=== PATIENT | male | born 1995 | race Caucasian/White ===

== ENCOUNTER 2021-04-07 19:07 | Emergency (ER) | payer BC, SELFPAY ==
--- NOTE | 2021-04-07 19:12 | ED.ALLEREA ---
HPI - Allergic Reaction General Chief complaint: Allergic Reaction Stated complaint: allergic to coconut, just ate some Source: patient and RN notes reviewed Mode of arrival: ambulatory Limitations: no limitations History of Present Illness complaint: allergic reaction Onset (ago): minute(s) (10) Exposure: food Known history of allergy to: coconut Symptoms: itching (throat) and hoarseness (mild) Severity: mild Related Data Home Medications Medication Instructions Recorded Confirmed No Home Medications 04/07/21 04/07/21 Allergies Allergy/AdvReac Type Severity Reaction Status Date / Time coconut Allergy Severe THROAT Verified 05/04/16 06:43 SWELLS/HIVES NUTS NOT PEANUTS, ALMONDS, Allergy Unknown ITCHING Uncoded 01/26/16 14:09 PINEDA Review of Systems Review of Systems: All systems reviewed & are unremarkable except as noted in HPI and below PMFSH Surgical History Surgical History (Updated 04/07/21 @ 19:46 by Mitchell Catherine MD) History of myringotomy History of tonsillectomy and adenoidectomy Family History Family History Other Diabetes mellitus Family history of cardiovascular disease Exam Const: General: healthy appearing, no acute distress and alert Nutritional Appearance: well nourished Orientation/consciousness: patient oriented x3 HENMT: Head: normal to inspection Face and sinus: normal facial exam Mouth: Yes Normal oral and palatal mucosa present and Yes moist mucous membranes Throat: posterior oropharynx abnormal erythema (mild) Eyes: Conjunctivae: conjunctivae normal Pupils: Equal, round and reactive pupils present EOM: EOMs intact bilaterally Neck: Neck: normal visual inspection and no lymphadenopathy Resp: Effort & Inspection: normal respiratory effort Auscultation: clear to auscultation bilaterally Cardio: Rate: regular rate Rhythm: regular rhythm GI: GI Palp: Yes Soft to palpation and No Tenderness to palpation present (GI) Auscultation: normal bowel sounds Back/Spine/Pelvis: Cervical Spine: cervical ROM normal Thoracic/Lumbar Spine: thoraco-lumbar ROM normal Skin: General skin exam: normal color Rashes: no rashes Neuro: General: patient oriented x3, moves all extremities, no meningeal signs and no focal motor deficits Speech: normal speech Gait exam (Neuro): Normal gait present Extrem: General: normal to inspection and no clubbing, cyanosis or edema Psych: Appearance: grossly normal and well kempt Affect: normal affect Attitude: cooperative Thought content: Yes Normal thought content present Course Vital Signs Vital signs: Vital Signs Temperature 36.7 C 04/07/21 19:25 Pulse Rate 97 04/07/21 19:25 Respiratory Rate 18 04/07/21 19:25 Blood Pressure 161/101 H 04/07/21 19:25 Pulse Oximetry 100 04/07/21 19:25 Temperature 36.7 C 04/07/21 19:25 Pulse Rate 89 04/07/21 19:56 Respiratory Rate 16 04/07/21 19:56 Blood Pressure 163/97 H 04/07/21 19:56 Pulse Oximetry 98 04/07/21 19:56 Discharge Plan Discharge Clinical Impression: Allergic reaction Qualifiers: Encounter type: initial encounter Qualified Code(s): T78.40XA - Allergy, unspecified, initial encounter Patient Disposition: Home, Self-Care Condition: Improved Instructions: Food Allergy (ED) Additional Instructions: can use Zyrtec [id number] 10 mg twice daily as needed. Can also use Zantac or Pepcid [id number] as needed. Prescriptions: No Action No Home Medications RF: 0 Follow-up/Referrals: Keith Downey MD [Primary Care Provider] - Time of Disposition: 19:47
[2021-04-07 19:25] VITALS: BP 161/101; PULSE 97; RESP 18; TEMP 36.7; O2SAT 100
[2021-04-07] MEDS: diphenhydrAMINE HCl INJ 50 MG/ML VIAL IM (19:41)
[2021-04-07] MEDS: methylPREDNISolone SOD SUCC 125 MG VIAL IM (19:41)
--- NOTE | 2021-04-07 19:50 | PC.NURSE ---
Patient tolerated IM injections and does not have any questions or concerns at this time. call light within reach and patient alert and oriented x4. RN educated patient on observing him for approximately 15 minutes after administering medications to watch or reaction. patient verbalized understanding at this time.
[2021-04-07 19:56] VITALS: BP 163/97; PULSE 89; RESP 16; O2SAT 98
== END 2021-04-07 20:04 | disposition home or self-care (01) ==
PROVIDERS: Emergency Provider Emergency Medicine; PCP Family Medicine
DX: T78.40XA Allergy, unspecified, initial encounter (principal)
CPT/HCPCS: 96372; 99283; 99284; J1200; J2930

== ENCOUNTER 2022-11-05 01:36 | Day surgery (SDC) | payer BC, SELFPAY ==
[2022-10-24 14:08] VITALS: BMI 29.9
[2022-11-05 08:38] VITALS: BP 144/87; PULSE 84; RESP 16; TEMP 36.3; O2SAT 100
[2022-11-05] MEDS: LACTATED RINGERS 1,000 ML 150 ML IV CONT (08:47)
--- NOTE | 2022-11-05 09:34 | PM.HPGS ---
History of Present Illness History of Present Illness Consent: Risks, benefits, and alternatives have been discussed and questions answered. Patient agrees to proceed with procedure. Chief complaint: eosinophilic esophagitis, Dysphagia Narrative: Amos Rachel is a 27 year old male Presents for EGD. 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 At that time and esophageal erosions. Was placed on omeprazole. Patient however has not continued this medication. At that time EGD revealed elevated eosinophil count in the histology suggesting underlying eosinophilic esophagitis. Patient ultimately discontinued omeprazole. Over the last several years has had intermittent dysphagia. Complains of occasional regurgitation and heartburn. This has become more persistent recently. Three months ago he restarted omeprazole 40mg p.o. daily. He has had no further dysphagia. He does complain of some regurgitation however. Patient referred for follow-up EGD at this time. Family history noncontributory. Review of Systems Review of Systems: Review of systems noncontributory. [facility] Past Medical History Medical History (Updated 11/05/22 @ 09:36 by Mitchell Graff MD) Eosinophilic esophagitis GERD with esophagitis Hypertension Hypertension Obesity (BMI 30.0-34.9) Surgical History Surgical History History of myringotomy History of tonsillectomy and adenoidectomy Family History Family History Other Diabetes mellitus Family history of cardiovascular disease Social History Social History Smoking status: Never smoker Alcohol intake: current Drinks per week: 3 Alcohol use details: social Substance use: never Substance use type: does not use Living arrangements: with family Spiritual care concerns: No Meds Home Medications and Allergies Home Medications Medication Instructions Recorded Confirmed Type lisinopril 20 1 tablet PO DAILY 09/05/22 10/24/22 History mg-hydrochlorothiazide 12.5 mg tablet omeprazole 40 mg capsule,delayed 40 mg PO DAILY 09/05/22 10/24/22 History release Allergies Allergy/AdvReac Type Severity Reaction Status Date / Time coconut Allergy Severe THROAT Verified 11/05/22 08:37 SWELLS/HIVES hazelnut Allergy Swelling Verified 11/05/22 08:37 of Lip/Tongue/Throat walnut AdvReac Swelling Verified 11/05/22 08:37 of Lip/Tongue/Throat Vital Signs Vital Signs - 24 hr 11/05/22 08:38 Temperature 97.3 F L Pulse Rate 84 Respiratory Rate 16 Blood Pressure 144/87 H Pulse Oximetry 100 Oxygen Delivery Room Air Exam Narrative: Physical exam reveals patient to be alert. Vital signs stable. HEENT exam is unremarkable. Patient is anicteric. Lungs are clear to auscultation and percussion. Heart is without murmur or extra sounds. Abdomen bowel sounds present soft nontender with no organomegaly. Assessment and Plan Assessment and plan (1) GERD with esophagitis: Code(s): K21.00 - Gastro-esophageal reflux disease with esophagitis, without bleeding Status: Acute Assessment and Plan: Patient appears to have underlying GE reflux disease manifested by esophageal erosions on previous EGD. Complains recurrence symptoms at this time having discontinued the omeprazole. Plan for long-term omeprazole 40mg p.o. daily. Follow-up EGD to assess status of GE reflux is advised. Patient also has possibility of concomitant the eosinophilic esophagitis this will be evaluated at the time of procedure as well. (2) Eosinophilic esophagitis: Code(s): K20.0 - Eosinophilic esophagitis Status: Acute Assessment and Plan: Patient had elevated eosinophil
--- NOTE | 2022-11-05 09:59 | P.PNAN_ITS ---
Anes - Initial Pre Proc Eval Procedure: Operation Date: 11/05/22 10:00 Proposed Procedures p Esophagogastroduodenoscopy - Mitchell Graff MD Date/Time: 11/05/22 09:59 Surgeon: Mitchell Graff MD Pre Op Diagnosis: eosinophilic esophagitis, Dysphagia Patient Data Age: 27 Gender: M Height: 1.85 m Weight: 106.5 kg Last Vital Signs Temp 97.3 F L 11/05/22 08:38 Pulse 84 11/05/22 08:38 Resp 16 11/05/22 08:38 BP 144/87 H 11/05/22 08:38 Pulse Ox 100 11/05/22 08:38 O2 Del Method Room Air 11/05/22 08:38 Allergies Allergy/AdvReac Type Severity Reaction Status Date / Time coconut Allergy Severe THROAT Verified 11/05/22 08:37 SWELLS/HIVES hazelnut Allergy Swelling Verified 11/05/22 08:37 of Lip/Tongue/Throat walnut AdvReac Swelling Verified 11/05/22 08:37 of Lip/Tongue/Throat Home Medications Medication Instructions Recorded Confirmed Type lisinopril 20 1 tablet PO DAILY 09/05/22 10/24/22 History mg-hydrochlorothiazide 12.5 mg tablet omeprazole 40 mg capsule,delayed 40 mg PO DAILY 09/05/22 10/24/22 History release Patient hx anesthesia problems: none Family hx anesthesia problems: none Results Review: All pre-operative results and documents have been reviewed as part of the pre- operative evaluation. [facility] Past Medical History Medical History (Updated 11/05/22 @ 09:36 by Mitchell Graff MD) Eosinophilic esophagitis GERD with esophagitis Hypertension Hypertension Obesity (BMI 30.0-34.9) Surgical History Surgical History History of myringotomy History of tonsillectomy and adenoidectomy Family History Family History Other Diabetes mellitus Family history of cardiovascular disease Social History Social History Smoking status: Never smoker Alcohol intake: current Drinks per week: 3 Alcohol use details: social Substance use: never Substance use type: does not use Living arrangements: with family Spiritual care concerns: No Anes - Eval Final PreProcedure Day of Procedure 11/05/22 09:59 Patient weight: normal and obese Heart: regular rate and rhythm Lungs: clear to auscultation Airway: Mallampati scale class II Neurological: alert and oriented Last oral intake: >/= 8 hours ASA classification: II Emergent: no Anesthetic plan: proceed Anesthesia type and monitoring: general GIVS and standard monitoring Results Review: All pre-operative results and documents have been reviewed as part of the pre-operative evaluation. Informed Consent: The patient's anesthetic plan and its attendant risks and benefits were discussed with the patient/family/POA. Questions were solicited and answers provided to the satisfaction of the patient/family/POA.
[2022-11-05 10:26] VITALS: BP 108/62; PULSE 53; RESP 15; O2SAT 100
[2022-11-05 10:36] VITALS: BP 117/92; PULSE 87; RESP 13; O2SAT 100
[2022-11-05 10:46] VITALS: BP 114/73; PULSE 76; RESP 20; O2SAT 99
== END 2022-11-05 10:56 | disposition home or self-care (01) ==
PROVIDERS: PCP Family Medicine; Visit Provider Internal Medicine Gastroenterology
PROC: 0DJ08ZZ Inspection of Upper Intestinal Tract, Via Natural or Artificial Opening Endoscopic (ICD-10-PCS; CPT 43235; principal; 2022-11-05 10:00)
DX: K20.0 Eosinophilic esophagitis (principal); R13.10 Dysphagia, unspecified; I10 Essential (primary) hypertension; E66.9 Obesity, unspecified; Z68.31 Body mass index [BMI] 31.0-31.9, adult
CPT/HCPCS: 43239; 88305; 88312; J2704; J7120

== ENCOUNTER 2023-02-08 02:17 | Day surgery (SDC) | payer BC, SELFPAY ==
[2023-01-24 09:30] VITALS: BMI 30.4
[2023-02-08 07:48] VITALS: BP 139/82; PULSE 85; RESP 18; TEMP 36.4; O2SAT 100; BMI 31.4
[2023-02-08] MEDS: LACTATED RINGERS 1,000 ML 150 ML IV CONT (07:59)
--- NOTE | 2023-02-08 08:33 | PM.HPGS ---
History of Present Illness History of Present Illness Consent: Risks, benefits, and alternatives have been discussed and questions answered. Patient agrees to proceed with procedure. Chief complaint: Gastroesophageal reflux disease with oesophagitis Narrative: Amos Rachel is a 27 year old male Presents for EGD. Patient has a history of erosive esophagitis. Rather significant erosions and stricture ring identified in October of 2022. Patient has been maintained on omeprazole 40mg p.o. b.i.d.. He denies any heartburn. He does have some difficulty swallowing pills however. Patient returns today for follow-up endoscopy. Biopsies were indeterminate between acid reflux and possible eosinophilic esophagitis. Review of Systems Review of Systems: Review of systems noncontributory. [facility] Past Medical History Medical History (Updated 11/05/22 @ 09:36 by Mitchell Graff MD) Eosinophilic esophagitis GERD with esophagitis Hypertension Hypertension Obesity (BMI 30.0-34.9) Surgical History Surgical History History of myringotomy History of tonsillectomy and adenoidectomy Family History Family History Other Diabetes mellitus Family history of cardiovascular disease Social History Social History Smoking status: Never smoker Alcohol intake: current Drinks per week: 3 Alcohol use details: 7 drinks monthly Substance use: never Substance use type: does not use Living arrangements: with family Spiritual care concerns: No Meds Home Medications and Allergies Home Medications Medication Instructions Recorded Confirmed Type lisinopril 20 1 tablet PO DAILY 09/05/22 01/24/23 History mg-hydrochlorothiazide 12.5 mg tablet omeprazole 40 mg capsule,delayed 40 mg PO .BID #60 caps 11/05/22 01/24/23 Rx release Allergies Allergy/AdvReac Type Severity Reaction Status Date / Time coconut Allergy Severe THROAT Verified 01/24/23 09:31 SWELLS/HIVES hazelnut Allergy Swelling Verified 01/24/23 09:31 of Lip/Tongue/Throat walnut AdvReac Swelling Verified 01/24/23 09:31 of Lip/Tongue/Throat Vital Signs Vital Signs - 24 hr 02/08/23 07:48 Temperature 97.6 F Pulse Rate 85 Respiratory Rate 18 Blood Pressure 139/82 Pulse Oximetry 100 Oxygen Delivery Room Air Exam Narrative: Physical exam reveals patient to be alert. Vital signs stable. HEENT exam is unremarkable. Patient is anicteric. Lungs are clear to auscultation and percussion. Heart is without murmur or extra sounds. Abdomen bowel sounds are present soft nontender with no organomegaly. Assessment and Plan Assessment and plan (1) Dysphagia: Code(s): R13.10 - Dysphagia, unspecified Status: Acute Assessment and Plan: Patient with dysphagia suggesting recurrent esophageal stricturing. Plan for EGD for additional dilatation also to follow-up on previous esophagitis. (2) GERD with esophagitis: Code(s): K21.00 - Gastro-esophageal reflux disease with esophagitis, without bleeding Status: Acute Assessment and Plan: Patient with underlying erosive esophagitis. Differential includes both GE reflux as well as eosinophilic esophagitis. Follow-up EGD anticipated at this time. Patient has been maintained on omeprazole 40mg p.o. b.i.d.. Further recommendations may be given after endoscopy.
[2023-02-08] MEDS: BENZOCAINE (*SP) 60 ML SPRAY CAN (HURRICAINE) 1 SPRAY MUCOUS MEM (09:19)
[2023-02-08] MEDS: SIMETHICONE ORAL SUSPENSION 20 MG/0.3 ML 30 ML BOTTLE 0.6 ML IRRIGATION (09:24)
[2023-02-08 09:32] VITALS: BP 115/89; PULSE 88; RESP 17; O2SAT 96
[2023-02-08 09:42] VITALS: BP 134/87; PULSE 82; RESP 20; O2SAT 98
[2023-02-08 09:52] VITALS: BP 131/88; PULSE 75; RESP 16; O2SAT 99
== END 2023-02-08 09:59 | disposition home or self-care (01) ==
PROVIDERS: PCP Family Medicine; Visit Provider Internal Medicine Gastroenterology
PROC: 0DJ08ZZ Inspection of Upper Intestinal Tract, Via Natural or Artificial Opening Endoscopic (ICD-10-PCS; CPT 43235; principal; 2023-02-08 09:00)
DX: R13.10 Dysphagia, unspecified (principal); K21.9 Gastro-esophageal reflux disease without esophagitis; I10 Essential (primary) hypertension; E66.9 Obesity, unspecified; Z68.31 Body mass index [BMI] 31.0-31.9, adult
CPT/HCPCS: 43239; 43450; 88305; J2704; J7120

== ENCOUNTER 2023-05-03 03:02 | Day surgery (SDC) | payer BC, SELFPAY ==
[2023-04-17 14:04] VITALS: BMI 30.4
--- NOTE | 2023-05-01 11:28 | SUR.PREOP ---
Patient called regarding upcoming procedure. Reviewed preop instructions, appointment times, and procedure prep.
[2023-05-03 07:06] VITALS: BP 134/87; PULSE 98; RESP 18; TEMP 36.7; O2SAT 99; BMI 31.4
[2023-05-03] MEDS: LACTATED RINGERS 1,000 ML 150 ML IV CONT (07:19)
--- NOTE | 2023-05-03 07:23 | WPDANESEPPF ---
Anes - Initial Pre Proc Eval Procedure: Operation Date: 05/03/23 08:00 Proposed Procedures p Esophagogastroduodenoscopy - Mitchell Graff MD Date/Time: 05/03/23 07:23 Surgeon: Mitchell Graff MD Pre Op Diagnosis: Erosive Esophagitis Patient Data Age: 27 Gender: M Height: 1.85 m Weight: 108.2 kg Last Vital Signs Temp 36.7 C 05/03/23 07:06 Pulse 98 05/03/23 07:06 Resp 18 05/03/23 07:06 BP 134/87 05/03/23 07:06 Pulse Ox 99 05/03/23 07:06 O2 Del Method Room Air 05/03/23 07:06 Allergies Allergy/AdvReac Type Severity Reaction Status Date / Time coconut Allergy Severe THROAT Verified 05/03/23 07:04 SWELLS/HIVES hazelnut Allergy Swelling Verified 05/03/23 07:04 of Lip/Tongue/Throat walnut AdvReac Swelling Verified 05/03/23 07:04 of Lip/Tongue/Throat Home Medications Medication Instructions Recorded Confirmed Type lisinopril 20 1 tablet PO DAILY 09/05/22 04/17/23 History mg-hydrochlorothiazide 12.5 mg tablet omeprazole 40 mg capsule,delayed 40 mg PO DAILY 04/17/23 04/17/23 History release Patient hx anesthesia problems: none Family hx anesthesia problems: none Results Review: All pre-operative results and documents have been reviewed as part of the pre-operative evaluation. [facility] Past Medical History Medical History Eosinophilic esophagitis GERD with esophagitis Hypertension Hypertension Obesity (BMI 30.0-34.9) Surgical History Surgical History History of myringotomy History of tonsillectomy and adenoidectomy Family History Family History Other Diabetes mellitus Family history of cardiovascular disease Social History Social History Smoking status: Never smoker Alcohol intake: current Drinks per week: 3 Alcohol use details: 7 drinks monthly Substance use: never Substance use type: does not use Living arrangements: with family Spiritual care concerns: No Anes - Eval Final PreProcedure Day of Procedure 05/03/23 07:23 Patient weight: obese Heart: regular rate and rhythm Lungs: clear to auscultation Airway: Mallampati scale class II Neurological: alert and oriented Last oral intake: >/= 8 hours ASA classification: II Emergent: no Anesthetic plan: proceed Anesthesia type and monitoring: general GIVS and standard monitoring Results Review: All pre-operative results and documents have been reviewed as part of the pre-operative evaluation. Informed Consent: The patient's anesthetic plan and its attendant risks and benefits were discussed with the patient/family/POA. Questions were solicited and answers provided to the satisfaction of the patient/family/POA.
--- NOTE | 2023-05-03 07:24 | PM.HPGS ---
History of Present Illness History of Present Illness Consent: Risks, benefits, and alternatives have been discussed and questions answered. Patient agrees to proceed with procedure. Chief complaint: Erosive Esophagitis Narrative: Amos Rachel is a 27 year old male With a history of rather significant acid reflux. Patient previously found to have severe erosive esophagitis. This was noted to have signs of improvement dose of omeprazole was decreased to20mg p.o. daily. Patient reports that he intermittently will gag and feel regurgitation. He sometimes has difficulty swallowing the omeprazole pill. Otherwise eating meat such as chicken is passed without difficulty. Patient presents today for follow-up endoscopy. Review of Systems Review of Systems: review of systems noncontributory. [facility] Past Medical History Medical History Eosinophilic esophagitis GERD with esophagitis Hypertension Hypertension Obesity (BMI 30.0-34.9) Surgical History Surgical History History of myringotomy History of tonsillectomy and adenoidectomy Family History Family History Other Diabetes mellitus Family history of cardiovascular disease Social History Social History Smoking status: Never smoker Alcohol intake: current Drinks per week: 3 Alcohol use details: 7 drinks monthly Substance use: never Substance use type: does not use Living arrangements: with family Spiritual care concerns: No Meds Home Medications and Allergies Home Medications Medication Instructions Recorded Confirmed Type lisinopril 20 1 tablet PO DAILY 09/05/22 04/17/23 History mg-hydrochlorothiazide 12.5 mg tablet omeprazole 40 mg capsule,delayed 40 mg PO DAILY 04/17/23 04/17/23 History release Allergies Allergy/AdvReac Type Severity Reaction Status Date / Time coconut Allergy Severe THROAT Verified 05/03/23 07:04 SWELLS/HIVES hazelnut Allergy Swelling Verified 05/03/23 07:04 of Lip/Tongue/Throat walnut AdvReac Swelling Verified 05/03/23 07:04 of Lip/Tongue/Throat Vital Signs Vital Signs - 24 hr 05/03/23 07:06 Temperature 98.1 F Pulse Rate 98 Respiratory Rate 18 Blood Pressure 134/87 Pulse Oximetry 99 Oxygen Delivery Room Air Exam Narrative: Physical exam reveals patient to be alert. Vital signs stable. HEENT exam is unremarkable. Patient is anicteric. Lungs are clear to auscultation and percussion. Heart is without murmur or extra sounds. Abdomen bowel sounds are present soft nontender with no organomegaly. Assessment and Plan Assessment and plan (1) Dysphagia: Code(s): R13.10 - Dysphagia, unspecified Status: Acute Assessment and Plan: Patient with difficulty swallowing pills such as omeprazole. He does notice occasional regurgitation. Symptoms appear not as well controlled taking only 20mg of omeprazole. Follow-up EGD to be performed today. (2) GERD with esophagitis: Code(s): K21.00 - Gastro-esophageal reflux disease with esophagitis, without bleeding Status: Acute Assessment and Plan: Patient with significant acid reflux in the past. Erosive esophagitis appeared to be improving on taken a 40mg dose of omeprazole. Further med recommendations may be given on follow-up EGD today.
--- NOTE | 2023-05-03 08:30 | SUR.OPER ---
CNC SUPERVISOR used oral suction during procedure for excess secretions.
[2023-05-03 08:34] VITALS: BP 97/60; PULSE 89; RESP 20; O2SAT 96
[2023-05-03 08:44] VITALS: BP 97/63; PULSE 84; RESP 20; O2SAT 96
[2023-05-03 08:54] VITALS: BP 108/70; PULSE 90; RESP 24; O2SAT 99
== END 2023-05-03 09:06 | disposition home or self-care (01) ==
PROVIDERS: PCP Family Medicine; Visit Provider Internal Medicine Gastroenterology
PROC: 0DJ08ZZ Inspection of Upper Intestinal Tract, Via Natural or Artificial Opening Endoscopic (ICD-10-PCS; CPT 43235; principal; 2023-05-03 08:00)
DX: R13.10 Dysphagia, unspecified (principal); K21.00 Gastro-esophageal reflux disease with esophagitis, without bleeding; I10 Essential (primary) hypertension; E66.9 Obesity, unspecified; Z68.31 Body mass index [BMI] 31.0-31.9, adult
CPT/HCPCS: 43239; 43450; 88305; J2001; J2704; J7120

== ENCOUNTER 2023-05-31 13:26 | Outpatient (CLI) | payer BC, SELFPAY ==
[2023-05-31 13:55] LABS: Basophils Absolute Auto 0.06 K/mm3 (0.00-0.10); Basophils Percent Auto 0.5 % (0.0-1.0); Eosinophils Absolute Auto 0.28 K/mm3 (0.02-0.50); Eosinophils Percent Auto 2.5 % (1.0-6.0); Hematocrit 44.2 % (40.0-54.0); Hemoglobin 14.9 g/dL (14.0-18.0); Immature Granulocyte Absolute 0.05 K/mm3 (0.00-0.00); Immature Granulocyte Percent A 0.4 % (0.0-0.0); Lymphocytes Absolute Auto 2.56 K/mm3 (1.10-4.50); Lymphocytes Percent Auto 22.9 % (18.0-42.0); Mean Corpuscular HGB Conc 33.7 g/dL (32.0-36.0); Mean Corpuscular Hemoglobin 29.2 pg (27.0-31.0); Mean Corpuscular Volume 86.5 fL (78.0-102.0); Mean Platelet Volume 9.4 fl (8.7-11.0); Monocytes Absolute Auto 0.62 K/mm3 (0.10-0.90); Monocytes Percent Auto 5.6 % (2.0-11.0); Neutrophils Absolute Auto 7.6 K/mm3 (1.7-7.2); Neutrophils Percent Auto 68.1 % (50.0-70.0); Platelet Count Result 318 K/mm3 (150-420); Red Blood Count 5.11 M/mm3 (4.70-6.10); Red Cell Distribution Width 11.8 % (11.6-14.4); White Blood Count 11.2 K/mm3 (4.8-10.8)
== END 2023-05-31 13:27 | disposition home or self-care (01) ==
PROVIDERS: PCP Family Medicine; Visit Provider Nurse Practitioner
DX: K20.0 Eosinophilic esophagitis (principal)
CPT/HCPCS: 36415; 85025

== ENCOUNTER 2024-08-19 07:25 | Outpatient (CLI) | payer BC, SELFPAY ==
--- NOTE | ~2024-08-19 | US_ITS ---
Limited Abdominal Sonogram: Real-time sonographic imaging of the right upper quadrant was performed. Clinical History: Abnormal liver enzymes Findings: The liver appears normal with no evidence of mass lesion or bile duct dilatation. Main por yasmeen vein demonstrates normal direction of flow. The gallbladder is well distended, and appears normal with no evidence of gallstone or wall thickening. The common bile duct measures 3 mm. The visualize d pancreas, aorta, and IVC are unremarkable. Impression: No significant abnormality seen. Reviewed, dictated and finalized at location M. Impression: No significant abnormality seen.
--- OUTSIDE RECORDS SUMMARY | 2024-08-19 07:27 | XMS_ITS | Continuity of Care Document ---
Author Organization [facility] Address [address] [place] [address] [address] [place] [address] Phone Care Team Providers Care Centrifugal Machine Tender Name Role Phone Karen Zamora Unavailable Unavailable Procedures Procedure Date Eye Exam & Treatment Refraction Advance Directives Directive Yes / No Effective Date File Name No Information Encounters Encounter Description Practice Location Reason(s) For Visit Diagnoses Date Provider Providers Copied on Encounter [facility], [address], [place], [place], [id number], [place] tel:[phone] [facility] No Information [address] , [address], [place], [address], [place]. tel:[phone] Family History Family Member Type Diagnosis Age At Onset No Information Payers Payer name Insurance type Covered democrat ID Authoraramisa opal(s) [facility] Commercial CI [id number] Social History Type Description Quantity Date Captured Comments Sex Male Smoking Status No Information Chief Complaint And Reason For Visit No Information Reason For Referral Reason For Referral No Information History Of Present Illness Encounter Date Complaint History Of Prese nt Illness No Information Functional Status Date Functional Assessmen t No Information Instructions Date Instruction Additional Infor mation No Information Assessments Type Assessment Date No Information Patient Care Teams Name Effective Dates (start - stop) Status Members No Information
--- OUTSIDE RECORDS SUMMARY | 2024-08-19 07:27 | XMS_ITS | CONTINUITY OF CARE DOCUMENT ---
Author Name valerie padilla Address Unknown Organization [facility] Office Address [address] [place] [address] Phone [phone] Care Team Providers Care Occ Therapy Asst Name Role Phone Candido Rabago MD Unavailable
== END 2024-08-19 07:26 | disposition home or self-care (01) ==
LOC: CHSIMG 07:25
PROVIDERS: PCP Family Medicine; Visit Provider Family Medicine
DX: R74.01 Elevation of levels of liver transaminase levels (principal)
CPT/HCPCS: 76705

== ENCOUNTER 2024-09-07 01:15 | Day surgery (SDC) | payer BC, SELFPAY ==
[2024-09-01 09:42] VITALS: BMI 30.5
--- OUTSIDE RECORDS SUMMARY | 2024-09-07 01:19 | XMS_ITS | Continuity of Care Document ---
Author Organization [facility] Address [address] [place] [address] [address] [place] [address] Phone Care Team Providers Care Executor Of Estate Name Role Phone Karen Zamora Unavailable Unavailable Procedures Procedure Date Eye Exam & Treatment Refraction Advance Directives Directive Yes / No Effective Date File Name No Information Encounters Encounter Description Practice Location Reason(s) For Visit Diagnoses Date Provider Providers Copied on Encounter [facility], [address], [place], [place], [id number], [place] tel:[phone] [facility] No Information [address] , [address], [place], [address], [place]. tel:[phone] Family History Family Member Type Diagnosis Age At Onset No Information Payers Payer name Insurance type Covered republican ID Authoraramisa opla(s) [facility] Commercial CI [id number] Social History Type Description Quantity Date Captured [...]
--- OUTSIDE RECORDS SUMMARY | 2024-09-07 01:19 | XMS_ITS | CONTINUITY OF CARE DOCUMENT ---
Author Name valerie padilla Address Unknown Organization [facility] Office Address [address] [place] [address] Phone [phone] Care Team Providers Care Union Organizer Name Role Phone Candido Rabago MD Unavailable
[2024-09-07 08:39] VITALS: BP 126/108; PULSE 84; RESP 18; TEMP 36.1; O2SAT 100
[2024-09-07] MEDS: LACTATED RINGERS 1,000 ML 150 ML IV CONT (08:48)
--- NOTE | 2024-09-07 08:57 | P.PNAN_ITS ---
Anes - Initial Pre Proc Eval Procedure: Operation Date: 09/07/24 09:45 Proposed Procedures p Colonoscopy - Josiah Graham MD Date/Time: 09/07/24 08:57 Surgeon: Josiah Graham MD Pre Op Diagnosis: Elevation of levels of liver transaminase levels Patient Data Age: 29 Gender: M Height: 1.85 m Weight: 100.9 kg Last Vital Signs Temp 36.1 C L 09/07/24 08:39 Pulse 84 09/07/24 08:39 Resp 18 09/07/24 08:39 BP 126/108 H 09/07/24 08:39 Pulse Ox 100 09/07/24 08:39 O2 Del Method Room Air 09/07/24 08:39 Allergies Allergy/AdvReac Type Severity Reaction Status Date / Time coconut Allergy Severe THROAT Verified 09/07/24 08:38 SWELLS/HIVES hazelnut Allergy Swelling Verified 09/07/24 08:38 of Lip/Tongue/Throat walnut AdvReac Swelling Verified 09/07/24 08:38 of Lip/Tongue/Throat Home Medications ?Medication ?Instructions ?Recorded ?Confirmed ?Type lisinopril 20 1 tablet PO DAILY 09/05/22 09/07/24 History mg-hydrochlorothiazide 12.5 mg tablet dupilumab 300 mg/2 mL subcutaneous 300 mg (2 mL) subcut WEEKLY 3 06/25/23 09/01/24 Rx pen injector (Dupixent) months #26 mL omeprazole 40 mg capsule,delayed 40 mg PO DAILY 09/01/24 09/07/24 History release Patient hx anesthesia problems: none Family hx anesthesia problems: none Results Review: All pre-operative results and documents have been reviewed as part of the pre- operative evaluation. [facility] Past Medical History Medical History Obesity (BMI 30.0-34.9) Hypertension GERD with esophagitis Eosinophilic esophagitis Hypertension Surgical History Surgical History History of myringotomy History of tonsillectomy and adenoidectomy Family History Family History Other Diabetes mellitus Family history of cardiovascular disease Social History Social History Smoking status: Never smoker Alcohol intake: current Drinks per week: 3 Alcohol use details: 7 drinks monthly Substance use: never Substance use type: does not use Living arrangements: with family Spiritual care concerns: No Anes - Eval Final PreProcedure Day of Procedure 09/07/24 08:57 Patient weight: overweight Heart: regular rate and rhythm Lungs: clear to auscultation Airway: Mallampati scale class II Neurological: alert and oriented Last oral intake: >/= 8 hours ASA classification: II Emergent: no Anesthetic plan: proceed Anesthesia type and monitoring: general GIVS and standard monitoring Results Review: All pre-operative results and documents have been reviewed as part of the pre- operative evaluation. Informed Consent: The patient's anesthetic plan and its attendant risks and benefits were discussed with the patient/family/POA. Questions were solicited and answers provided to the satisfaction of the patient/family/POA.
--- NOTE | 2024-09-07 09:30 | PM.HPGS ---
History of Present Illness History of Present Illness Consent: Risks, benefits, and alternatives have been discussed and questions answered. Patient agrees to proceed with procedure. Chief complaint: Elevation of levels of liver transaminase levels Narrative: Amos Rachel is a 29 year old male here for first colonoscopy, had blood in stools Review of Systems Review of Systems: All systems reviewed & are unremarkable except as noted in HPI and below PMFSH Past Medical History Medical History (Updated 09/07/24 @ 09:31 by Josiah Graham MD) Blood in stool Obesity (BMI 30.0-34.9) Hypertension GERD with esophagitis Eosinophilic esophagitis Hypertension Surgical History Surgical History History of myringotomy History of tonsillectomy and adenoidectomy Family History Family History Other Diabetes mellitus Family history of cardiovascular disease Social History Social History Smoking status: Never smoker Alcohol intake: current Drinks per week: 3 Alcohol use details: 7 drinks monthly Substance use: never Substance use type: does not use Living arrangements: with family Spiritual care concerns: No Meds Home Medications and Allergies Home Medications ?Medication ?Instructions ?Recorded ?Confirmed ?Type lisinopril 20 1 tablet PO DAILY 09/05/22 09/07/24 History mg-hydrochlorothiazide 12.5 mg tablet dupilumab 300 mg/2 mL subcutaneous 300 mg (2 mL) subcut WEEKLY 3 06/25/23 09/01/24 Rx pen injector ([employer]) months #26 mL omeprazole 40 mg capsule,delayed 40 mg PO DAILY 09/01/24 09/07/24 History release Allergies Allergy/AdvReac Type Severity Reaction Status Date / Time coconut Allergy Severe THROAT Verified 09/07/24 08:38 SWELLS/HIVES hazelnut Allergy Swelling Verified 09/07/24 08:38 of Lip/Tongue/Throat walnut AdvReac Swelling Verified 09/07/24 08:38 of Lip/Tongue/Throat Vital Signs Vital Signs - 24 hr 09/07/24 08:39 Temperature 97 F L Pulse Rate 84 Respiratory Rate 18 Blood Pressure 126/108 H Pulse Oximetry 100 Oxygen Delivery Room Air Exam Const: General: comfortable and no acute distress HENMT: Face/Nose/Sinus: Normal nares present Eyes: General: appearance normal, both eyes and all related structures Neck: Neck: no JVD Resp: Auscultation: clear to auscultation bilaterally Cardio: Rate: regular rate Rhythm: regular rhythm GI: Inspection: non-distended GI Palp: Yes Soft to palpation Skin: General skin exam: normal color Neuro: General: gait normal Speech: normal speech Extrem: General: normal to inspection Psych: Mental Status: mental status grossly normal Assessment and Plan Assessment and plan (1) Blood in stool: Code(s): K92.1 - Melena Status: Acute Assessment and Plan: colonoscopy
[2024-09-07 09:44] VITALS: BP 106/70; PULSE 85; RESP 19; O2SAT 95
[2024-09-07 09:54] VITALS: BP 108/71; PULSE 82; RESP 19; O2SAT 96
[2024-09-07 10:04] VITALS: BP 128/81; PULSE 81; RESP 20; O2SAT 100
== END 2024-09-07 10:10 | disposition home or self-care (01) ==
PROVIDERS: PCP Family Medicine; Referring Provider Family Medicine; Visit Provider Internal Medicine Gastroenterology
PROC: 0DJD8ZZ Inspection of Lower Intestinal Tract, Via Natural or Artificial Opening Endoscopic (ICD-10-PCS; CPT 45378; principal; 2024-09-07 09:45)
DX: K92.1 Melena (principal); I10 Essential (primary) hypertension; K21.00 Gastro-esophageal reflux disease with esophagitis, without bleeding; Z79.85 Long-term (current) use of injectable non-insulin antidiabetic drugs; Z98.890 Other specified postprocedural states; Z82.49 Family history of ischemic heart disease and other diseases of the circulatory system
CPT/HCPCS: 45378; J2003; J2704; J7120